=== PATIENT | female | born 1975 | race Caucasian/White ===

== ENCOUNTER → 2017-04-12 | Outpatient (CLI) | payer BC, MEDICAID ==
[~2017-04-12] MED LIST: ONDA8TAB6 PO
--- NOTE | 2017-04-13 14:27 | Diagnostic Imaging Report ---
Bilateral screening mammogram 2D views with tomosynthesis. The current study was also evaluated with a Computer Aided Detection (CAD) system. INDICATION: Screening. No current complaints stated on the questionnaire. COMPARISON: None. This is a baseline exam. FINDINGS: The breasts are composed of dense fibroglandular tissue which would decrease mammographic sensitivity. There is no mass, architectural distortion, or suspicious cluster of calcifications identified. IMPRESSION: Dense fibroglandular tissue which would decrease mammographic sensitivity with no definite focal mass identified. Annual screening mammogram is recommended. ACR BI-RADS Category 2: Benign findings. Result letter will be mailed to the patient. Note: At least 10% of breast cancer is not imaged by mammography. Dictated by: Dictated on workstation # [id number]
== END ==
LOC: RAD 14:58
PROVIDERS: ATTEND Nurse Practitioner Family
DX: Z12.31 Encounter for screening mammogram for malignant neoplasm of breast (principal)
CPT/HCPCS: 77067

== ENCOUNTER → 2020-02-05 | Outpatient (CLI) | payer BC ==
--- NOTE | 2020-02-05 12:17 | Diagnostic Imaging Report ---
EXAMINATION: Digital mammogram bilateral screening with CAD. INDICATION: Screening. COMPARISON: This study was compared to the prior exam of 04/12/2017. PERSONAL HISTORY: At this time, there are no current complaints. FINDINGS: The fibroglandular tissue in both breasts is dense. This does limit the sensitivity of this exam. Overall, there does not appear to have been any significant change when compared to the prior study. No primary or secondary sign of malignancy is noted. IMPRESSION: 1. There is no evidence for malignancy. 2. The patient should have her annual bilateral screening mammogram on schedule in January 2021. ACR BI-RADS Category 1: Negative. Result letter will be mailed to the patient. Note: At least 10% of breast cancer is not imaged by mammography. Dictated by: Dictated on workstation # [id number]
== END ==
LOC: RAD 10:24
PROVIDERS: ATTEND Nurse Practitioner
DX: Z12.31 Encounter for screening mammogram for malignant neoplasm of breast (principal)
CPT/HCPCS: 77063; 77067

== ENCOUNTER → 2020-07-22 | Outpatient (CLI) | payer BC ==
--- NOTE | 2020-07-22 11:04 | Diagnostic Imaging Report ---
PROCEDURE: MR angiography of the brain without the use of contrast. TECHNIQUE: 3D [id number] non contrast enhanced MR angiography of the head was performed. A source data was reformatted into rotating MIP projections. INDICATION: Tongue spasms. Right-sided headaches. COMPARISON: MRI brain without and with IV contrast 01/29/2007. FINDINGS: Noncontrast yrli-[id number] intracranial MRA demonstrates widely patent basilar, intracranial vertebral, internal carotid, anterior cerebral, middle cerebral and posterior cerebral arteries. Patent anterior communicating artery and posterior communicating arteries. No aneurysm or dissection. IMPRESSION: Normal intracranial MRA. Dictated by: Dictated on workstation # [id number]
== END ==
LOC: RAD 09:30
PROVIDERS: ATTEND Nurse Practitioner
DX: K14.8 Other diseases of tongue (principal); M54.12 Radiculopathy, cervical region; R10.9 Unspecified abdominal pain
CPT/HCPCS: 70544

== ENCOUNTER → 2021-02-25 | Outpatient (CLI) | payer BC ==
--- NOTE | 2021-02-25 15:38 | Diagnostic Imaging Report ---
INDICATION: Routine screening. COMPARISON is made with prior mammograms from 02/05/2020 and 04/12/2017. 2-D and 3-D bilateral screening mammography was performed with CAD. Both breasts are heterogeneously dense, limiting the sensitivity of mammography. There are some circumscribed densities in the left breast which appear stable. No new mass or malignant-appearing microcalcifications are seen. Axillae are unremarkable. IMPRESSION: BI-RADS Category 2 No mammographic features suspicious for malignancy are identified. ACR BI-RADS Category 2: Benign findings. Result letter will be mailed to the patient. Note: At least 10% of breast cancer is not imaged by mammography. Dictated by: Dictated on workstation # [id number]
== END ==
LOC: RAD 10:15
PROVIDERS: ATTEND Nurse Practitioner
DX: Z12.31 Encounter for screening mammogram for malignant neoplasm of breast (principal)
CPT/HCPCS: 77063; 77067